=== PATIENT | female | born 1940 | race Caucasian/White ===

== ENCOUNTER 2022-01-23 19:57 | Inpatient (IN) | payer OTHER ==
[~2022-01-23] VITALS: Ht 165.1 cm; Wt 73.2 kg
[2022-01-23 20:30] LABS: Basophils # (auto) 0 10 ^3/uL (0-0.2); Basophils % (auto) 0.4 % (0.0-2.0); Eosinophils # (auto) 0 10 ^3/uL (0-0.8); Hematocrit 41.3 % (36.0-46.0); Hemoglobin 14.1 g/dL (12.2-16.2); Lymphocytes # (auto) 2.3 10 ^3/uL (0.4-5.4); Lymphocytes % (auto) 35.5 % (10.0-50.0); Mean Corpuscular Hemoglobin 31.2 pg (28.0-32.0); Mean Corpuscular Volume 91.7 fL (80.0-100.0); Monocytes # (auto) 0.6 10 ^3/uL (0-1.3); Monocytes % (auto) 9.6 % (0.0-12.0); Neutrophils # (auto) 3.5 10 ^3/uL (1.6-8.6); Neutrophils % (auto) 54.5 % (37.0-80.0); Nucleated Red Blood Cells % 0.3 %; Red Cell Distribution Width 13.2 % (11.8-14.3); White Blood Cell 6.4 10^3/uL (4.4-10.8)
[2022-01-23 20:46] LABS: INR 0.97 (0.9-1.15); Partial Thromboplastin Time 29.5 sec (24.6-33.4)
[2022-01-23 20:59] LABS: Albumin 3.9 g/dL (3.4-5.0); BUN/Creatinine Ratio 14.6; Calcium 9.2 mg/dL (8.5-10.1); Potassium 4.8 mmol/L (3.5-5.1)
[2022-01-23 21:01] LABS: Bilirubin, Total 0.4 mg/dL (0.2-1.0); Total Protein 7.5 g/dL (6.4-8.2)
[2022-01-23] MEDS ORDERED: MORPHINE SULFATE INJ 2 MG/ml SYRG IV ONE (22:45)
[2022-01-23] MEDS ORDERED: ONDANSETRON HCL 4 MG/2 ML VIAL IV ONE (22:45)
[2022-01-23] MEDS ORDERED: ENOXAPARIN SOD 80 MG/0.8ML SYRINGE SC ONE (23:00)
[2022-01-23] MEDS ORDERED: ASPirin 81 mg TAB PO ONE (23:00)
[2022-01-23] MEDS ORDERED: NITROGLYCERIN 50MG/250ML 250 ML IV SCH (23:00)
[2022-01-23] MEDS: ATORVASTATIN 20 MG TAB PO SCH (23:18)
[2022-01-24] MEDS ORDERED: TEMAZEPAM 15 MG CAP PO PRN (01:45)
[2022-01-24] MEDS ORDERED: NITROGLYCERIN 0.4 MG SL TAB SL PRN (01:45)
[2022-01-24] MEDS ORDERED: D5W/SOD CHLO 0.9% 1,000 ML IV SCH (01:45)
[2022-01-24 02:29] LABS: Urine Bacteria FEW /hpf (None Seen); Urine Blood Negative /uL (Negative); Urine WBC 3 /hpf (0 - 5)
[2022-01-24] MEDS: MORPHINE SULFATE INJ 2 MG/ml SYRG IV PRN ×3 (02:43→11:34)
[2022-01-24] MEDS: ONDANSETRON HCL 4 MG/2 ML VIAL IV PRN ×3 (02:43→20:17)
[2022-01-24 04:00] LABS: BUN/Creatinine Ratio 17.1; Calcium 9.1 mg/dL (8.5-10.1); Potassium 4.9 mmol/L (3.5-5.1)
[2022-01-24] MEDS ORDERED: cefTRIAXone 1GM/50ML D5W 50 ML IV SCH (09:00)
[2022-01-24] MEDS: ASPirin 81 mg TAB PO SCH (09:47)
[2022-01-24] MEDS ORDERED: ENOXAPARIN SOD 80 MG/0.8ML SYRINGE SC ONE (10:00)
[2022-01-24] MEDS ORDERED: KETOROLAC TROMETH 30 MG/ML 1ML VIAL IV ONE (12:15)
[2022-01-24] MEDS ORDERED: OMEP20TA PO (14:41)
[2022-01-24] MEDS ORDERED: VENL150C3 PO (14:41)
[2022-01-24] MEDS ORDERED: ALBUAER3 IN (14:41)
[2022-01-24] MEDS ORDERED: LISI-716 PO (14:41)
[2022-01-24] MEDS ORDERED: HYDR-4798 PO (14:41)
[2022-01-24] MEDS ORDERED: ATOR40TA52 PO (14:41)
[2022-01-24] MEDS ORDERED: NALO4SPR2 (14:41)
[2022-01-24] MEDS ORDERED: METO25TA5 PO (14:41)
[2022-01-24] MEDS ORDERED: CLOP75TA70 PO (14:41)
[2022-01-24] MEDS ORDERED: CICL80AE2 IN (14:41)
[2022-01-24] MEDS ORDERED: IODIXANOL 320MG/ML 100ML BTL IV ONE (14:57)
[2022-01-24] MEDS ORDERED: HEPARIN SODIUM (PORCINE) 5000 UNITS/ML 1ML VIAL ONE (15:17)
[2022-01-24] MEDS ORDERED: VERAPAMIL 2.5MG/ML INJ 2ML VIAL IV ONE (15:17)
[2022-01-24] MEDS ORDERED: ANGIOMAX 250 MG VIAL IV ONE (15:17)
[2022-01-24] MEDS ORDERED: SODIUM CHL 0.9% 50 ML ONE (15:18)
[2022-01-24] MEDS ORDERED: MIDAZOLAM HCL 2MG/2ML 2ml VIAL (1mg/ml) ONE (15:18)
[2022-01-24] MEDS ORDERED: fentaNYL CITRATE 100 MCG/2 ML VL ONE (15:18)
[2022-01-24] MEDS ORDERED: LIDOCAINE 2%HCL (LOCAL ANESTH.) INJ 10ml MDV ONE (15:20)
[2022-01-24] MEDS ORDERED: HYDROmorphone HCL 2 MG/ML VL/or syr ONE (15:49)
[2022-01-24] MEDS ORDERED: ONDANSETRON HCL 4 MG/2 ML VIAL ONE (16:20)
[2022-01-24] MEDS ORDERED: CLOPIDOGREL 300 MG TAB ONE (16:24)
[2022-01-24 16:31] VITALS: BP 145/82
[2022-01-24 16:44] VITALS: BP 131/68
[2022-01-24 16:58] VITALS: BP 134/75
[2022-01-24 17:08] VITALS: BP 136/76
[2022-01-24 17:18] VITALS: BP 129/76
[2022-01-24] MEDS ORDERED: cefTRIAXone 1GM/50ML D5W 50 ML IV ONE (20:30)
[2022-01-24] MEDS ORDERED: METOPROLOL TARTRATE 25 MG TAB PO SCH (22:00)
[2022-01-24] MEDS: VENLAFAXINE HCL 37.5mg XR cap PO SCH (22:58)
[2022-01-24] MEDS: ATORVASTATIN 20 MG TAB PO SCH (22:59)
[2022-01-25 04:58] VITALS: BP 111/54
[2022-01-25 06:24] LABS: Basophils # (auto) 0 10 ^3/uL (0-0.2); Basophils % (auto) 0.1 % (0.0-2.0); Eosinophils # (auto) 0 10 ^3/uL (0-0.8); Hematocrit 40.1 % (36.0-46.0); Hemoglobin 13.2 g/dL (12.2-16.2); Lymphocytes # (auto) 1.5 10 ^3/uL (0.4-5.4); Lymphocytes % (auto) 19.7 % (10.0-50.0); Mean Corpuscular Hemoglobin 30.1 pg (28.0-32.0); Mean Corpuscular Hgb Conc. 32.9 g/dL (32.0-36.0); Mean Corpuscular Volume 91.5 fL (80.0-100.0); Monocytes # (auto) 0.7 10 ^3/uL (0-1.3); Monocytes % (auto) 9.7 % (0.0-12.0); Neutrophils # (auto) 5.4 10 ^3/uL (1.6-8.6); Neutrophils % (auto) 70.5 % (37.0-80.0); Nucleated Red Blood Cells % 0.1 %; Red Blood Cells 4.38 10^6/uL (4.0-5.20); Red Cell Distribution Width 13.1 % (11.8-14.3); White Blood Cell 7.7 10^3/uL (4.4-10.8)
[2022-01-25 06:53] LABS: Calcium 8.7 mg/dL (8.5-10.1); Potassium 4.4 mmol/L (3.5-5.1)
[2022-01-25 06:58] LABS: BUN/Creatinine Ratio 16.1
[2022-01-25] MEDS: ASPirin 81 mg TAB PO SCH (08:48)
[2022-01-25] MEDS: FAMOTIDINE 20 MG TAB PO SCH (08:49)
[2022-01-25] MEDS: VENLAFAXINE HCL 37.5mg XR cap PO SCH ×2 (08:49→22:22)
[2022-01-25] MEDS: cefTRIAXone 1GM/50ML D5W 50 ML IV SCH (08:50)
[2022-01-25] MEDS: CLOPIDOGREL BISULFATE 75 MG TAB PO SCH (08:50)
[2022-01-25 09:00] VITALS: BP 97/54
[2022-01-25 13:00] VITALS: BP 106/54
[2022-01-25] MEDS ORDERED: FUROSEMIDE 20 MG/2 ML VIAL IV ONE (14:15)
[2022-01-25 17:00] VITALS: BP 125/60
[2022-01-25 22:00] VITALS: BP 119/59
[2022-01-25] MEDS: ATORVASTATIN 20 MG TAB PO SCH (22:22)
[2022-01-25] MEDS: METOPROLOL TARTRATE 25 MG TAB PO SCH (22:23)
[2022-01-26 05:00] VITALS: BP 122/60
[2022-01-26 05:47] LABS: Calcium 9.3 mg/dL (8.5-10.1); Potassium 4.4 mmol/L (3.5-5.1)
[2022-01-26 05:52] LABS: BUN/Creatinine Ratio 23.9
[2022-01-26] MEDS ORDERED: EMPAGLIFLOZIN 10 MG TAB PO SCH (07:00)
[2022-01-26 08:45] VITALS: BP 116/66
[2022-01-26] MEDS: cefTRIAXone 1GM/50ML D5W 50 ML IV SCH (08:48)
[2022-01-26] MEDS: CLOPIDOGREL BISULFATE 75 MG TAB PO SCH (08:48)
[2022-01-26] MEDS: VENLAFAXINE HCL 37.5mg XR cap PO SCH (08:49)
[2022-01-26] MEDS: FAMOTIDINE 20 MG TAB PO SCH (08:49)
[2022-01-26] MEDS: ASPirin 81 mg TAB PO SCH (08:49)
[2022-01-26] MEDS: METOPROLOL TARTRATE 25 MG TAB PO SCH (08:58)
[2022-01-26] MEDS ORDERED: LISINOPRIL 10 MG TAB PO SCH (10:00)
[2022-01-26] MEDS ORDERED: FUROSEMIDE 20 MG/2 ML VIAL IV SCH (10:00)
[2022-01-26 12:50] VITALS: BP 91/41
[2022-01-26] MEDS ORDERED: EMPA1TAB PO (13:08)
[2022-01-26 15:20] VITALS: BP 116/66
== END 2022-01-26 17:12 | disposition home or self-care (01) | DRG 246 ==
LOC: ER 20:03 → TELE 01-24 01:37 → TELE-WESTW 01-24 17:59
PROVIDERS: ADMIT Nurse Practitioner; ATTEND Internal Medicine
PROC: 027237Z Dilation of Coronary Artery, Three Arteries with Four or More Drug-eluting Intraluminal Devices, Percutaneous Approach (ICD-10-PCS; principal; 2022-01-24)
PROC: 4A023N7 Measurement of Cardiac Sampling and Pressure, Left Heart, Percutaneous Approach (ICD-10-PCS; 2022-01-24)
PROC: B211YZZ Fluoroscopy of Multiple Coronary Arteries using Other Contrast (ICD-10-PCS; 2022-01-24)
PROC: B215YZZ Fluoroscopy of Left Heart using Other Contrast (ICD-10-PCS; 2022-01-24)
PROC: 4A033BC Measurement of Arterial Pressure, Coronary, Percutaneous Approach (ICD-10-PCS; 2022-01-24)
DX: I21.4 Non-ST elevation (NSTEMI) myocardial infarction (principal); I50.41 Acute combined systolic (congestive) and diastolic (congestive) heart failure; N39.0 Urinary tract infection, site not specified; E78.5 Hyperlipidemia, unspecified; I25.2 Old myocardial infarction; F32.A Depression, unspecified; F41.9 Anxiety disorder, unspecified; I11.0 Hypertensive heart disease with heart failure; I25.10 Atherosclerotic heart disease of native coronary artery without angina pectoris; K21.9 Gastro-esophageal reflux disease without esophagitis; Z85.038 Personal history of other malignant neoplasm of large intestine; Z20.822 Contact with and (suspected) exposure to COVID-19; Z79.84 Long term (current) use of oral hypoglycemic drugs
CPT/HCPCS: 36415; 71045; 80048; 80053; 80061; 81001; 83880; 84484; 85025; 85610; 85730; 87426; 93005; 93306; 96361; 96365; 96367; 96372; 96375; 96376; 99152; 99153; C1874; G0378; J0696; J1885; J2001; J2250; J2405; Q9967

== ENCOUNTER 2022-01-28 12:45 | Emergency (ER) | payer OTHER ==
[~2022-01-28] VITALS: Ht 165.1 cm; Wt 70.0 kg
[~2022-01-28 12:45] MED LIST: ALBUAER3 IN; ATOR40TA52 PO; CICL80AE2 IN; CLOP75TA70 PO; EMPA1TAB PO; HYDR-4798 PO; LISI-716 PO; METO25TA5 PO; NALO4SPR2; OMEP20TA PO; VENL150C3 PO
[2022-01-28 13:58] LABS: Basophils # (auto) 0 10 ^3/uL (0-0.2); Basophils % (auto) 0.4 % (0.0-2.0); Eosinophils # (auto) 0 10 ^3/uL (0-0.8); Hematocrit 40.5 % (36.0-46.0); Hemoglobin 13.8 g/dL (12.2-16.2); Lymphocytes # (auto) 1.8 10 ^3/uL (0.4-5.4); Lymphocytes % (auto) 24.1 % (10.0-50.0); Mean Corpuscular Hemoglobin 31.1 pg (28.0-32.0); Mean Corpuscular Hgb Conc. 34.1 g/dL (32.0-36.0); Mean Corpuscular Volume 91.2 fL (80.0-100.0); Monocytes # (auto) 0.7 10 ^3/uL (0-1.3); Monocytes % (auto) 9.2 % (0.0-12.0); Neutrophils % (auto) 66.3 % (37.0-80.0); Nucleated Red Blood Cells % 0.1 %; Red Blood Cells 4.44 10^6/uL (4.0-5.20); Red Cell Distribution Width 12.9 % (11.8-14.3); White Blood Cell 7.6 10^3/uL (4.4-10.8)
[2022-01-28 14:18] LABS: Albumin 3.6 g/dL (3.4-5.0); Calcium 9.1 mg/dL (8.5-10.1); Potassium 5.1 mmol/L (3.5-5.1)
[2022-01-28 14:22] LABS: BUN/Creatinine Ratio 20.5; Bilirubin, Total 0.3 mg/dL (0.2-1.0); Total Protein 7.5 g/dL (6.4-8.2)
[2022-01-28 20:25] VITALS: BP 117/75
== END 2022-01-28 20:30 | disposition short-term general hospital (02) ==
LOC: EDBD 12:45 → ER 12:55
DX: R07.89 Other chest pain (principal); D50.9 Iron deficiency anemia, unspecified; R77.8 Other specified abnormalities of plasma proteins; I10 Essential (primary) hypertension; I25.2 Old myocardial infarction; I25.10 Atherosclerotic heart disease of native coronary artery without angina pectoris; E78.5 Hyperlipidemia, unspecified; K21.9 Gastro-esophageal reflux disease without esophagitis; Z79.01 Long term (current) use of anticoagulants; Z79.899 Other long term (current) drug therapy; Z20.822 Contact with and (suspected) exposure to COVID-19
CPT/HCPCS: 36415; 71045; 80053; 84484; 85025; 87426; 93005